=== PATIENT | female | born 1995 | race American Indian/Alaskan Native ===

== ENCOUNTER 2017-10-10 15:25 | Emergency (ER) | payer BC ==
[2017-10-10 15:44] VITALS: BP 116/73
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
== END 2017-10-10 17:08 | disposition home or self-care (01) ==
LOC: ED 15:25
DX: R42 Dizziness and giddiness (principal); Z77.123 Contact with and (suspected) exposure to radon and other naturally occurring radiation
CPT/HCPCS: 82375; 99283